=== PATIENT | male | born 1975 | race Caucasian/White ===

== ENCOUNTER 2017-02-14 21:37 | Emergency (ER) | payer MEDICAID, OTHER ==
[2017-02-14 22:09] VITALS: BP 119/76; PULSE 84; RESP 17; TEMP 98.3; O2SAT 99
== END 2017-02-14 22:49 | disposition left against medical advice (07) ==
LOC: C.ER 21:37 → SUPCPDRO 21:37 → C.ER 22:49
DX: R07.81 Pleurodynia (principal); Z02.9 Encounter for administrative examinations, unspecified

== ENCOUNTER 2018-08-30 21:38 | Inpatient (IN) | payer MEDICAID ==
--- NOTE | 2018-08-30 22:38 | C.PDOC ---
History Of Present Illness 43 year old male with a Hx of schizophrenia and depression presents with suicidal ideation. Patient notes his was recently hospitalized for a medical issue, today he tried to cutting his bilateral forearms. He did not OD on medication, sustain other trauma or fall. Denies fever, chills, night sweats, chest pain, abdominal pain, or other complaints. Time Seen by Provider: 08/30/18 22:38 Chief Complaint (Nursing): Psychiatric Evaluation History Per: Patient History/Exam Limitations: no limitations Onset/Duration Of Symptoms: Hrs Current Symptoms Are (Timing): Still Present Suicide/Self Injury Attempted (Context): Other (Cut forearms) Associated Symptoms: Suicidal Thoughts Involuntary Hold By: None Recent travel outside of the [place]: No Past Medical History Reviewed: Historical Data, Nursing Documentation, Vital Signs Vital Signs: Last Vital Signs Temp 98.0 F 08/30/18 22:23 Pulse 78 08/30/18 22:23 Resp 18 08/30/18 22:23 BP 127/89 08/30/18 22:23 Pulse Ox 96 08/30/18 22:23 - Medical History PMH: Bipolar Disorder, Depression, Post Traumatic Stress Disorder, Schizophrenia (2010 - no meds) Denies: Diabetes, Hepatitis, HIV, HTN, Chronic Kidney Disease, Seizures, Sexually Transmitted Disease Family History: States: Unknown Family Hx - Social History Hx Tobacco Use: Yes Hx Alcohol Use: Yes Hx Substance Use: Yes - Immunization History Hx Tetanus Toxoid Vaccination: No Hx Influenza Vaccination: No Hx Pneumococcal Vaccination: No Review Of Systems Except As Marked, All Systems Reviewed And Found Negative. Psych: Positive for: Suicidal ideation Physical Exam - Physical Exam Appears: Non-toxic Skin: Warm, Dry Head: Atraumatic, Normacephalic Eye(s): bilateral: Normal Inspection Oral Mucosa: Moist Neck: Normal, Supple Chest: Symmetrical, No Tenderness Cardiovascular: Rhythm Regular Respiratory: Normal Breath Sounds, No Rales, No Rhonchi, No Wheezing Gastrointestinal/Abdominal: Soft, No Tenderness Extremity: Capillary Refill (<2 seconds), Other (Two superficial lacerations to inner right and left forearms approximately 4cm each, good hemostasis) Pulses: Left Radial: Normal, Right Radial: Normal Neurological/Psych: Oriented x3, Normal Speech ED Course And Treatment - Laboratory Results Result Diagrams: 08/30/18 23:37 01/26/19 23:37 O2 Sat by Pulse Oximetry: 96 (Room air) Pulse Ox Interpretation: Normal Medical Decision Making Medical Decision Making: Suicidal ideation vs Acute stress reaction Will seek crisis eval and medical clearance. Tetanus utd Crisis aware and will see patient [id number] medically clear pending psych 0129 to admit to [facility] pt agreeable to plan, in nad Disposition - Disposition Disposition Time: 01:28 Condition: GOOD Forms: [facility] (Ukrainian) - Clinical Impression Clinical Impression: Schizophrenia - Scribe Statement The provider has reviewed the documentation as recorded by the Scribe Jae Mi All medical record entries made by the Scribe were at my direction and personally dictated by me. I have reviewed the chart and agree that the record accurately reflects my personal performance of the history, physical exam, medical decision making, and the department course for this patient. I have also personally directed, reviewed, and agree with the discharge instructions and disposition.
[2018-08-30 23:40] LABS: BASO % 0.4 % (0.0-2.0); EOS # 0.1 K/uL (0.0-0.7); EOS % 1.9 % (0.0-4.0); HEMOGLOBIN 16.8 g/dL (12.0-18.0); LYMPH # 2.8 K/uL (1.0-4.3); LYMPH % 42.9 % (20.0-40.0); MEAN CELL VOLUME 94.1 fL (80.0-94.0); MEAN CORPUSCULAR HEMOGLOBIN 31.8 pg (27.0-31.0); MEAN CORPUSCULAR HGB CONC 33.8 g/dL (33.0-37.0); MEAN PLATELET VOLUME 8.8 fL (7.2-11.7); MONO # 0.7 K/uL (0.0-0.8); MONO % 10.7 % (0.0-10.0); NEUT # 2.8 K/uL (1.8-7.0); NEUT % 44.1 % (50.0-75.0); NRBC % 0.1 % (0.0-2.0); RBC 5.28 Mil/uL (4.40-5.90); RED CELL DISTRIBUTION WIDTH 13.6 % (11.5-14.5); WHITE BLOOD COUNT 6.4 K/uL (4.8-10.8)
[2018-08-30 23:53] LABS: ACETAMINOPHEN < 10.0 ug/mL (10.0-30.0); SALICYLATE < 1.0 {null, mg/dL 1}
[2018-08-30 23:54] LABS: ALB/GLOB RATIO 1.8 (1.0-2.1); ALT/SGPT 70 U/L (21-72); AST/SGOT 75 U/L (17-59); BLOOD UREA NITROGEN 11 mg/dL (9-20); GFR NON-AFRICAN AMERICAN > 60
[2018-08-31] LABS: URINE BILIRUBIN NEGATIVE (NEGATIVE); URINE BLOOD NEGATIVE (NEGATIVE); URINE CLARITY Clear (Clear); URINE COLOR Yellow (YELLOW); URINE GLUCOSE (UA) NORMAL (Normal); URINE HYALINE CAST 0-2 /lpf (0-2); URINE LEUKOCYTE ESTERASE NEG Leu/uL (Negative); URINE PROTEIN NEGATIVE (NEGATIVE)
[2018-08-31 00:16] LABS: BARBITURATES, UR NEGATIVE (NEGATIVE); BENZODIAZEPINES, UR NEGATIVE (NEGATIVE); OPIATES, UR NEGATIVE (NEGATIVE); PHENCYCLIDINE, UR NEGATIVE (NEGATIVE)
--- NOTE | 2018-08-31 03:21 | PCM.BM ---
<Adair Sommers - Last Filed: 08/31/18 03:18> Treatment Plan Problems - Problems identified on initial assessmt Altered Thought Process Date Initiated: 08/31/18 Time Initiated: 02:30 Assessment reference: NA Status: Active Ineffective Impulse Control Date Initiated: 08/31/18 Time Initiated: 02:30 Assessment reference: NA Status: Monitor Treatment assets and liabiliti Patient Assests: adapts well, cooperative, ADL independent, physically healthy, good support system, negotiates basic needs, cognitively intact Patient Liabilities: substance abuse - Milieu Protocol Maintain good personal hygiene: daily Encourage regular showers, daily Remind patient to perform daily oral care, daily Assist patient to perform ADL's Conduct patient checks and document Observation sheet: Q15 minutes Maintain personal safety: every shift Educate patient to report safety concerns to staff, every shift Monitor environment for contraband/sharps Medication safety: Monitor for expected outcome, potential side effects: every shift, Assess barriers to learning: every shift, Assess readiness for medication education: every shift <Nemo Pérez - Last Filed: 09/01/18 11:42> Family Contact Family involvement: Famliy/SO not involved - Goals for Treatment Patient goals for treatment: "I need an outpatient program." Discharge/Continuing Care - Education Needs Education Needs: Patient Medication, Patient Coping Skills - Treatment Team Participation Discussed with Family/SO: No Was Patient/Family/SO present at Treatment Team Meeting: Yes <Lisa Ramirez - Last Filed: 09/03/18 11:41> - Diagnosis (1) Schizophrenia Status: Acute Interventions: 09/03/18 11:41 * Assess/adjust medications daily and /or as needed * See patient on an individual basis 7x/week to assess status of hallucinations * Discuss risks, benefits, side effects and alternatives of medications *
[2018-09-01 09:23] VITALS: O2SAT 98
--- NOTE | 2018-09-01 09:57 | PCM.PSYCH ---
Initial Psychiatric Evaluation - Initial Psychiatric Evaluation Type of Admission: Voluntary Legal Status: Capacity Chief Complaint (in patient's own words): I started hearing voices. History of Present Illness and Precipitating Events: Patient is a 43 years old male, with a long history of depression and schizophrenia, who was escorted to the hospital with a girlfriend because of depressed mood and increasingly disorganized and paranoid behavior. Patient reports history of multiple inpatient psychiatric hospitalizations in the past. He also reports history of follow-up with a psychiatrist in the past. However he reports that he stopped taking medications almost 8 months ago, and relapsed on drinking. He reports of drinking more than 1 pint of liquor daily. Last abuse was yesterday. He is BAL in the ED was 222. As per his girlfriend, he has been drinking heavily these days and has been becoming increasingly depressed isolative and withdrawn. As per the girlfriend, he also started cutting his arm. On physical examination, superficial cuts, longitudinal, were noted on bilateral forearms. He reports at times depressed mood, feelings of hopelessness and helplessness, poor sleep and poor appetite. He also reports of hearing voices, auditory hallucinations yelling and cursing at him. He he appears paranoid and delusional. He reports withdrawal symptoms from drinking including shakes, anxiety, headache, sweating, and cramps. Past medical history None reported Current Medications: Active Medications Generic Name Dose Route Start Last Admin Trade Name Freq PRN Reason Stop Dose Admin Aripiprazole 15 mg 09/01/18 10:00 Abilify PO DAILY MARSHA Chlordiazepoxide 25 mg 08/31/18 02:54 09/01/18 07:38 Librium PO 25 mg Q4 PRN Administration Symptoms of alcohol withdrawl Haloperidol 5 mg 08/31/18 18:00 08/31/18 17:32 Haldol PO 5 mg BID MARSHA Administration Hydroxyzine HCl 25 mg 08/31/18 02:40 08/31/18 03:07 Atarax PO 25 mg Q6 PRN Administration Anxiety Influenza Virus Vaccine 60 mcg 09/01/18 10:00 Flucelvax Quad [id number] Syr IM 09/01/18 10:01 .ONCE ONE Pneumococcal Polyvalent Vaccine 0.5 ml 09/01/18 10:30 Pneumovax 23 Vaccine IM 09/01/18 10:31 .ONCE ONE Past Psychiatric History - Past Psychiatric History Previous Treatment History: Inpatient Pertinent Medical Hx (Current Medical&Sleep Prob, Allergies): Allergies Allergy/AdvReac Type Severity Reaction Status Date / Time No Known Allergies Allergy Verified 08/30/18 22:30 No Known Home Med 02/14/17 Review of Systems - Review of Systems All systems: reviewed and no additional remarkable complaints except - Psychiatric Psychiatric: Anxiety, Auditory Hallucinations, Irritability, Paranoia, Suicidal Ideation Mental Status Examination - Personal Presentation Personal Presentation: Looks stated age - Affect Affect: Constricted, Depressed - Motor Activity Motor Activity: Psychomotor Retardation - Reliability in Providing Information Reliability in Providing Information: Poor, due to alteration in thoughts, Poor, due to altered mood - Speech Speech: Disorganized - Mood Mood: Depressed, Anxious - Formal Thought Process Formal Thought Process: Hallucinations, Delusions, Paranoia, Loosening of associations - Hallucinations/Delusions Hallucinations: Auditory - Obsessions/Compulsions Obsessions: No Compulsions: No - Cognitive Functions Orientation: Person, Place, Situation, Time Sensorium: Alert Attention/Concentration: Attentive Abstract Thinking: [place] Estimate of Intelligence: Below average Judgement: Imparied, as evidence by: Poor judgement, Imparied, as evidence by: Lack of insight into illness - Risk Risk: Suicidal, Withdrawal, Diminished functioning - Limitations Limitations: Living alone DSM 5 DX - DSM 5 DSM 5 Diagnosis: Schizoaffective disorder depressive type Alcohol use disorder severe Alcohol withdrawal Cannabis use disorder severe - Recommended/Plan of Treatment Treatment Recommendations and Plan of Treatment: Schizoaffective disorder depressive type Alcohol use disorder severe Alcohol withdrawal Cannabis use disorder severe CBT Psychoeducation Supportive therapy and group therapy Librium taper Trazodone for insomnia Haldol for psychosis Abilify for depression Thiamine/folic acid/multivitamin and as needed medications - Smoking Cessation Smoking Cessation Initiated: No
[2018-09-01] MEDS ORDERED: Influenza Vaccine 60 mcg/0.5 mL SYR (4YR UP) IM ONE (10:00)
[2018-09-01] MEDS ORDERED: Pneumococcal 23-Valent Vaccine IM ONE (10:30)
[2018-09-01] MEDS: Multiple Vitamins Tab PO SCH (12:10)
[2018-09-02] MEDS: Multiple Vitamins Tab PO SCH (10:47)
--- NOTE | 2018-09-02 13:23 | PCM.PYCHPN ---
Psychiatric Progress Note - Psychiatric Progress Note Patient seen today, length of contact: 16 min Patient Chief Complaint: I am feeling little better.' Problems Identified/Issues Discussed: Patient was seen and evaluated , chart reviewed and discussed with staff. Patient reports improvement in the voices and paranoia. He also reports improvement in irritability and agitation. He also reports improvement in the withdrawal symptoms. He is taking medication but denies any side effects Symptoms are improving gradually and he needs to stay longer for further stabilization. Supportive therapy was given. Medication Change: Yes Medical Record Reviewed: Yes Mental Status Examination - Cognitive Function Orientation: Person, Place, Situation, Time Memory: Intact Attention: WNL Concentration: Poor Association: Loose Fund of Knowledge: WNL - Mood Mood: Depressed, Anxious - Affect Affect: Constricted, Depressed - Speech Speech: Soft - Formal Thought Process Formal Thought Process: Paranoia, Loosening of associations - Suicidal Ideation Suicidal Ideation: No - Homicidal Ideation Homicidal Ideation: No Goal/Treatment Plan - Goal/Treatment Plan Need for Continued Stay: Remain at risks for inpatient hospitalization, Discharge may exacerbated symptoms Progress Toward Problem(s) and Goals/Treatment Plan: Schizoaffective disorder depressive type Alcohol use disorder severe Alcohol withdrawal Cannabis use disorder severe CBT Psychoeducation Supportive therapy and group therapy Librium taper Trazodone for insomnia Haldol for psychosis Abilify for depression Thiamine/folic acid/multivitamin and as needed medications
[2018-09-03 06:58] VITALS: BP 99/66; PULSE 67; RESP 16; TEMP 98.5
[2018-09-03] MEDS: Multiple Vitamins Tab PO SCH (09:20)
--- NOTE | 2018-09-03 10:33 | PCM.PYCHDC ---
Mental Status Examination - Mental Status Examination Orientation: Person, Place, Situation, Time Memory: Intact Mood: Neutral Affect: Constricted Speech: Soft Attention: WNL Concentration: WNL Association: WNL Fund of Knowledge: WNL Formal Thought Process: No Impairment Description of patient's judgement and insight: good, fair Psychotic Thoughts and Behaviors: denies any AVH Suicidal Ideation: No Current Homicidal Ideation?: No Discharge Summary - Discharge Note Reason for Hospitalization: Patient is a 43 years old male, with a long history of depression and schizophrenia, who was escorted to the hospital with a girlfriend because of depressed mood and increasingly disorganized and paranoid behavior. Patient reports history of multiple inpatient psychiatric hospitalizations in the past. He also reports history of follow-up with a psychiatrist in the past. However he reports that he stopped taking medications almost 8 months ago, and relapsed on drinking. He reports of drinking more than 1 pint of liquor daily. Last abuse was yesterday. He is BAL in the ED was 222. As per his girlfriend, he has been drinking heavily these days and has been becoming increasingly depressed isolative and withdrawn. As per the girlfriend, he also started cutting his arm. On physical examination, superficial cuts, longitudinal, were noted on bilateral forearms. He reports at times depressed mood, feelings of hopelessness and helplessness, poor sleep and poor appetite. He also reports of hearing voices, auditory hallucinations yelling and cursing at him. He he appears paranoid and delusional. He reports withdrawal symptoms from drinking including shakes, anxiety, headache, sweating, and cramps. Consultations:: List each consultation separately and include: 1. Reason for request. 2. Findings. 3. Follow-up Summary of Hospital Course include:: 1. Description of specific treatment plan utilized for patients during their course of treatmen. 2. Summarize the time- course for resolution of acute symptoms and/or regressed behaviors. 3. Describe issues identified and worked on during hospitalization. 4. Describe medication utilized. 5. Describe medical problems identified and treated. 6. Reassessment of suicide risk Summary of Hospital Course: Patient is a 43 years old male, with a long history of depression and schizophrenia, who was escorted to the hospital with a girlfriend because of depressed mood and increasingly disorganized and paranoid behavior. Patient reports history of multiple inpatient psychiatric hospitalizations in the past. He also reports history of follow-up with a psychiatrist in the past. However he reports that he stopped taking medications almost 8 months ago, and relapsed on drinking. He reports of drinking more than 1 pint of liquor daily. Last abuse was yesterday. He is BAL in the ED was 222. As per his girlfriend, he has been drinking heavily these days and has been becoming increasingly depressed isolative and withdrawn. As per the girlfriend, he also started cutting his arm. On physical examination, superficial cuts, longitudinal, were noted on bilateral forearms. He reports at times depressed mood, feelings of hopelessness and helplessness, poor sleep and poor appetite. He also reports of hearing voices, auditory hallucinations yelling and cursing at him. He he appears paranoid and delusional. He reports withdrawal symptoms from drinking including shakes, anxiety, headache, sweating, and cramps. Past medical history None reported - Final Diagnosis (DSM 5) Condition upon Discharge: GOOD DSM 5: Schizoaffective disorder depressive type Alcohol use disorder severe Alcohol withdrawal Cannabis use disorder severe Disposition: HOME/ ROUTINE Follow-up Treatment Plan: Schizoaffective disorder depressive type Alcohol use disorder severe Alcohol withdrawal Cannabis use disorder severe CBT Psychoeducation Supportive therapy and group therapy Librium taper Trazodone for insomnia Haldol for psychosis Abilify for depression Thiamine/folic acid/multivitamin and as needed medications Prescriptions/Medication Reconciliation: ARIPiprazole [Abilify] 5 mg PO DAILY #30 tab Haloperidol [Haldol] 5 mg PO BID #60 tab traZODone [Desyrel] 50 mg PO HS #30 tab - Smoking Cessation Smoking Cessation Medication prescribed: No - Antipsychotic Medications Pt discharged on 2 or more routine antipsychotic medications: No
== END 2018-09-03 11:30 | disposition home or self-care (01) | DRG 430 ==
LOC: C.ER 21:38 → C.5E 08-31 01:29
PROVIDERS: ADMIT Psychiatry & Neurology Psychiatry; ATTEND Psychiatry & Neurology Psychiatry
PROC: GZHZZZZ Group Psychotherapy (ICD-10-PCS; principal; 2018-08-31)
PROC: HZ2ZZZZ Detoxification Services for Substance Abuse Treatment (ICD-10-PCS; 2018-08-31)
PROC: HZ52ZZZ Individual Psychotherapy for Substance Abuse Treatment, Cognitive-Behavioral (ICD-10-PCS; 2018-08-31)
PROC: HZ59ZZZ Individual Psychotherapy for Substance Abuse Treatment, Supportive (ICD-10-PCS; 2018-08-31)
PROC: HZ56ZZZ Individual Psychotherapy for Substance Abuse Treatment, Psychoeducation (ICD-10-PCS; 2018-08-31)
PROC: HZ42ZZZ Group Counseling for Substance Abuse Treatment, Cognitive-Behavioral (ICD-10-PCS; 2018-08-31)
PROC: HZ46ZZZ Group Counseling for Substance Abuse Treatment, Psychoeducation (ICD-10-PCS; 2018-08-31)
PROC: GZ58ZZZ Individual Psychotherapy, Cognitive-Behavioral (ICD-10-PCS; 2018-08-31)
PROC: GZ56ZZZ Individual Psychotherapy, Supportive (ICD-10-PCS; 2018-08-31)
DX: F25.1 Schizoaffective disorder, depressive type (principal); F10.230 Alcohol dependence with withdrawal, uncomplicated; F12.20 Cannabis dependence, uncomplicated; Y90.7 Blood alcohol level of 200-239 mg/100 ml; F31.9 Bipolar disorder, unspecified; F43.10 Post-traumatic stress disorder, unspecified; G47.00 Insomnia, unspecified; R45.851 Suicidal ideations

== ENCOUNTER 2018-11-01 01:00 | Inpatient (IN) | payer MEDICAID ==
--- NOTE | 2018-11-01 01:58 | C.PDOC ---
History Of Present Illness 43 y/o male pt with hx of anxiety, bipolar disorder, depression, and schizophrenia presents to the ER c/o c/o schizophrenia and auditory hallucination that is telling him to hurt himself. Pt denies attempt: ingestion or cutting. Pt denies fall or trauma, chest pain, headache or nausea. No chest pain or shortness of breath. No abdominal pain. No other complaitns. Time Seen by Provider: 11/01/18 01:58 Chief Complaint (Nursing): Psychiatric Evaluation History Per: Patient History/Exam Limitations: no limitations Onset/Duration Of Symptoms: Days Current Symptoms Are (Timing): Still Present Suicide/Self Injury Attempted (Context): None Past Medical History Reviewed: Historical Data, Nursing Documentation, Vital Signs Vital Signs: Last Vital Signs Temp 98.4 F 11/01/18 01:15 Pulse 98 H 11/01/18 01:15 Resp 16 11/01/18 01:15 BP 119/81 11/01/18 01:15 Pulse Ox 98 11/01/18 01:15 - Medical History PMH: Anxiety, Bipolar Disorder, Depression, Post Traumatic Stress Disorder, Schizophrenia - [facility] Procedures DETOXIFICATION SERVICES FOR SUBSTANCE ABUSE TREATMENT (08/31/18) GROUP DOCTOR OF VETERINARY MEDICINE FOR SUBSTANCE ABUSE TREATMENT, PSYCHOEDUCATION (08/31/18) GROUP DOCTOR OF VETERINARY MEDICINE FOR SUBSTANCE ABUSE, COGNITIVE BEHAVIORAL (08/31/18) GROUP PSYCHOTHERAPY (08/31/18) INDIV PSYCHOTHERAPY FOR SUBSTANCE ABUSE TREATMENT, SUPPORT (08/31/18) INDIV PSYCHOTHERAPY FOR SUBSTANCE ABUSE, COGNITIV BEHAVIORAL (08/31/18) INDIV PSYCHOTHERAPY FOR SUBSTANCE ABUSE, PSYCHOEDUCATION (08/31/18) INDIVIDUAL PSYCHOTHERAPY, COGNITIVE-BEHAVIORAL (08/31/18) INDIVIDUAL PSYCHOTHERAPY, SUPPORTIVE (08/31/18) Family History: States: Unknown Family Hx - Social History Hx Tobacco Use: Yes Hx Alcohol Use: Yes Hx Substance Use: Yes - Immunization History Hx Tetanus Toxoid Vaccination: No Hx Influenza Vaccination: No Hx Pneumococcal Vaccination: No Review Of Systems Constitutional: Negative for: Fever, Chills, Sweats, Weakness, Malaise, Weight loss, Other (fall or trauma ) Eyes: Negative for: Pain, Vision Change, Conjunctivae Inflammation, Eyelid Inflammation, Redness ENT: Negative for: Ear Pain, Ear Discharge, Nose Pain, Nose Congestion, Mouth Pain, Mouth Swelling, Throat Pain, Throat Swelling, Other Cardiovascular: Negative for: Chest Pain, Palpitations, Orthopnea, Edema Respiratory: Negative for: Cough, Shortness of Breath, SOB with Excertion, Pleuritic Pain, Wheezing Gastrointestinal: Negative for: Nausea, Vomiting, Abdominal Pain, Diarrhea, Constipation, Melena, Hematochezia Genitourinary: Negative for: Dysuria, Frequency, Incontinence, Hematuria, Penile Discharge Musculoskeletal: Negative for: Neck Pain, Shoulder Pain, Arm Pain, Back Pain, Hand Pain Skin: Negative for: Rash, Lesions Neurological: Negative for: Weakness, Numbness, Change in Speech, Confusion, Headache Psych: Positive for: Depression, Other (auditory hallucination) Physical Exam - Physical Exam Appears: Well, Non-toxic, No Acute Distress Skin: Normal Color, Warm, Dry Head: Atraumatic, Normacephalic, No Laceration Eye(s): bilateral: Normal Inspection, PERRL, EOMI Ear(s): Bilateral: Normal Nose: Normal Oral Mucosa: Moist Tongue: Normal Appearing Lips: Normal Appearing Gingiva: Normal Appearing Throat: Normal, No Erythema, No Exudate Neck: Trachea Midline, No Midline Cervical Tenderness, No Paracervical Tenderness, Supple, Other (no meningeal signs; negative kernig's and brudzins ki's) Lymphatic: Normal Exam, No Adenopathy Chest: Symmetrical Cardiovascular: Rhythm Regular, No Friction Rub Respiratory: Normal Breath Sounds, No Rales, No Rhonchi, No Wheezing Gastrointestinal/Abdominal: Normal Exam, Soft, No Tenderness Back: Normal Inspection, No CVA Tenderness, No Vertebral Tenderness Extremity: Normal ROM, No Tenderness Neurological/Psych: Oriented x3, Normal Speech, Normal Cognition, Normal Cranial Nerves, No Cerebellar Signs, Normal Motor, Normal Sensation Gait: Steady Extremity: Right: No Drift, Left: No Drift ED Course And Treatment - Laboratory Results Result Diagrams: 11/01/18 02:13 11/01/18 02:13 O2 Sat by Pulse Oximetry: 98 (RA) Pulse Ox Interpretation: Normal Medical Decision Making Medical Decision Makin yr old male w/ hx of schizophrenia, bipolar p/w auditory command hallucinations. No attempt at ingestion or cutting himself. Notes he has a plan to cut himself. NO signs of fall or trauma. Alcohol on breath but without any meningeal signs. Plans: -- chem labs -- blood work 0347 +intox per alcohol level labs otherwise largely unremarkable medically cleared: Pending crisis eval Pt in NAD 0503 No signs of withdrawal, strong steady gait. accepted by Crisis, to Dr. Bullard Disposition - Disposition Disposition Time: 03:48 Condition: STABLE Forms: [facility] (Welsh) - Clinical Impression Clinical Impression: Auditory hallucinations - Scribe Statement The provider has reviewed the documentation as recorded by the Scribe Viera Do Provider Attestation: All medical record entries made by the Scribe were at my direction and personally dictated by me. I have reviewed the chart and agree that the record accurately reflects my personal performance of the history, physical exam, medi vickie decision making, and the department course for this patient. I have also personally directed, reviewed, and agree with the discharge instructions and disposition.
[2018-11-01 02:17] LABS: BASO % 0.5 % (0.0-2.0); EOS # 0.1 K/uL (0.0-0.7); EOS % 0.8 % (0.0-4.0); HEMOGLOBIN 17.3 g/dL (12.0-18.0); LYMPH # 3.3 K/uL (1.0-4.3); MEAN CELL VOLUME 94.9 fL (80.0-94.0); MEAN CORPUSCULAR HEMOGLOBIN 32.1 pg (27.0-31.0); MEAN CORPUSCULAR HGB CONC 33.8 g/dL (33.0-37.0); MEAN PLATELET VOLUME 8.1 fL (7.2-11.7); MONO # 0.7 K/uL (0.0-0.8); MONO % 8.2 % (0.0-10.0); NEUT # 4.2 K/uL (1.8-7.0); NEUT % 50.5 % (50.0-75.0); RBC 5.39 Mil/uL (4.40-5.90); RED CELL DISTRIBUTION WIDTH 13.8 % (11.5-14.5); WHITE BLOOD COUNT 8.3 K/uL (4.8-10.8)
[2018-11-01 02:19] LABS: SQUAMOUS EPITHIAL 1 /hpf (0-5); URINE BILIRUBIN NEGATIVE (NEGATIVE); URINE BLOOD NEGATIVE (NEGATIVE); URINE CLARITY Clear (Clear); URINE COLOR Yellow (YELLOW); URINE GLUCOSE (UA) NORMAL (Normal); URINE LEUKOCYTE ESTERASE NEG Leu/uL (Negative); URINE PROTEIN NEGATIVE (NEGATIVE); URINE UROBILINOGEN NORMAL mg/dL (0.2-1.0)
[2018-11-01 02:31] LABS: ACETAMINOPHEN < 10.0 ug/mL (10.0-30.0); ALB/GLOB RATIO 1.6 (1.0-2.1); ALBUMIN 5.1 g/dL (3.5-5.0); ALT/SGPT 43 U/L (21-72); AST/SGOT 49 U/L (17-59); BLOOD UREA NITROGEN 10 mg/dL (9-20); CALCIUM 9.5 mg/dl (8.6-10.4); GFR NON-AFRICAN AMERICAN > 60; SALICYLATE < 1.0 {null, mg/dL 1}
[2018-11-01 02:34] LABS: BARBITURATES, UR NEGATIVE (NEGATIVE); OPIATES, UR NEGATIVE (NEGATIVE); PHENCYCLIDINE, UR NEGATIVE (NEGATIVE)
[2018-11-01 02:39] LABS: BENZODIAZEPINES, UR POSITIVE (NEGATIVE)
--- NOTE | 2018-11-01 06:58 | PCM.BM ---
Treatment Plan Problems - Problems identified on initial assessmt Auditory Hallucinations Date Initiated: 11/01/18 Time Initiated: 06:15 Assessment reference: NA Status: Active Ineffective Coping Date Initiated: 11/01/18 Time Initiated: 06:15 Assessment reference: NA Status: Active Treatment assets and liabiliti Patient Assests: adapts well, ADL independent, physically healthy, good support system, negotiates basic needs, cognitively intact Patient Liabilities: substance abuse - Milieu Protocol Maintain good personal hygiene: daily Encourage regular showers, daily Remind patient to perform daily oral care, daily Assist patient to perform ADL's Conduct patient checks and document Observation sheet: Q15 minutes Maintain personal safety: every shift Educate patient to report safety concerns to staff, every shift Monitor environment for contraband/sharps Medication safety: Monitor for expected outcome, potential side effects: every shift, Assess barriers to learning: every shift, Assess readiness for medication education: every shift
[2018-11-01 06:59] VITALS: O2SAT 100
[2018-11-02] MEDS ORDERED: Influenza Vaccine 60 mcg/0.5 mL SYR (4YR UP) IM ONE (10:01)
[2018-11-03 06:44] VITALS: RESP 16
[2018-11-03] MEDS ORDERED: Pneumococcal 23-Valent Vaccine IM ONE (10:00)
--- NOTE | 2018-11-03 11:43 | PCM.PSYCH ---
Initial Psychiatric Evaluation - Initial Psychiatric Evaluation Type of Admission: Voluntary Legal Status: Capacity Current Medications: Active Medications Generic Name Dose Route Start Last Admin Trade Name Argenis PRN Reason Stop Dose Admin Aripiprazole 10 mg 11/02/18 10:00 11/03/18 10:32 Abilify PO 10 mg DAILY MARSHA Administration Benztropine Mesylate 1 mg 11/02/18 10:00 11/03/18 10:32 Cogentin PO 1 mg BID MARSHA Administration Chlordiazepoxide 25 mg 11/01/18 12:00 11/03/18 08:18 Librium PO 25 mg Q4 MARSHA Administration Haloperidol 5 mg 11/02/18 10:00 11/03/18 10:32 Haldol PO 5 mg BID MARSHA Administration Trazodone HCl 50 mg 11/01/18 22:00 11/02/18 21:48 Desyrel PO 50 mg HS MARSHA Administration Past Psychiatric History - Past Psychiatric History Pertinent Medical Hx (Current Medical&Sleep Prob, Allergies): Allergies Allergy/AdvReac Type Severity Reaction Status Date / Time No Known Allergies Allergy Verified 09/23/18 08:15 ARIPiprazole [Abilify] 5 mg PO DAILY #30 tab 09/03/18 Haloperidol [Haldol] 5 mg PO BID #60 tab 09/03/18 traZODone [Desyrel] 50 mg PO HS #30 tab 09/03/18
[2018-11-04 09:57] VITALS: BP 104/65; PULSE 82; TEMP 97.8
--- NOTE | 2018-11-04 10:20 | PCM.PYCHPN ---
Psychiatric Progress Note - Psychiatric Progress Note Patient seen today, length of contact: 15 min Medication Change: Yes Medical Record Reviewed: Yes Mental Status Examination - Cognitive Function Orientation: Person, Place, Situation, Time Memory: Intact Attention: WNL Concentration: Poor Association: WNL Fund of Knowledge: Poor - Mood Mood: Anxious - Affect Affect: Broad - Speech Speech: Pressured - Formal Thought Process Formal Thought Process: Delusions, Paranoia, Loosening of associations - Suicidal Ideation Suicidal Ideation: No - Homicidal Ideation Homicidal Ideation: No Goal/Treatment Plan - Goal/Treatment Plan Need for Continued Stay: Remain at risks for inpatient hospitalization
--- NOTE | 2018-11-04 10:27 | PCM.PYCHDC ---
Mental Status Examination - Mental Status Examination Orientation: Person, Place, Situation, Time Memory: Intact Mood: Neutral Affect: Constricted Speech: Soft Attention: WNL Concentration: WNL Association: WNL Fund of Knowledge: WNL Formal Thought Process: No Impairment Suicidal Ideation: No Current Homicidal Ideation?: No Discharge Summary - Discharge Note Consultations:: List each consultation separately and include: 1. Reason for request. 2. Findings. 3. Follow-up Summary of Hospital Course include:: 1. Description of specific treatment plan utilized for patients during their course of treatmen. 2. Summarize the time- course for resolution of acute symptoms and/or regressed behaviors. 3. Describe issues identified and worked on during hospitalization. 4. Describe medication utilized. 5. Describe medical problems identified and treated. 6. Reassessment of suicide risk - Final Diagnosis (DSM 5) Condition upon Discharge: STABLE Disposition: HOME/ ROUTINE Prescriptions/Medication Reconciliation: ARIPiprazole [Abilify] 10 mg PO DAILY 14 Days #30 tab Benztropine [Cogentin] 1 mg PO BID 14 Days tab Haloperidol [Haldol] 5 mg PO BID 14 Days #14 tab traZODone [Desyrel] 50 mg PO HS #14 tab
[2018-11-04] MEDS ORDERED: Divalproex 250 mg DR Tab PO SCH (18:00)
== END 2018-11-04 10:51 | disposition home or self-care (01) | DRG 430 ==
LOC: C.ER 01:00 → C.5E 05:04
PROVIDERS: ADMIT Psychiatry & Neurology Psychiatry; ATTEND Psychiatry & Neurology Psychiatry
DX: F20.9 Schizophrenia, unspecified (principal); F31.9 Bipolar disorder, unspecified; F43.10 Post-traumatic stress disorder, unspecified; R45.851 Suicidal ideations; Z87.891 Personal history of nicotine dependence; F10.10 Alcohol abuse, uncomplicated; Y90.8 Blood alcohol level of 240 mg/100 ml or more

== ENCOUNTER 2018-12-17 20:05 | Emergency (ER) | payer MEDICAID ==
[2018-12-17 20:25] VITALS: TEMP 98.3
--- NOTE | 2018-12-17 21:33 | C.PDOC ---
History Of Present Illness 43 year old male presents to the ER lethargic with slurred speech, not making any sense. Patient told triage nurse he was depressed and has been on a drinking binge, not taking his psych meds. Unable to obtain Hx. Time Seen by Provider: 12/17/18 20:33 Chief Complaint (Nursing): Psychiatric Evaluation History Per: Family History/Exam Limitations: no limitations Onset/Duration Of Symptoms: Hrs Modifying Factor(s): Alcohol Involuntary Hold By: None Recent travel outside of the [place]: No Past Medical History Reviewed: Historical Data, Nursing Documentation, Vital Signs Vital Signs: Last Vital Signs Temp 98.3 F 12/17/18 20:21 Pulse 121 H 12/17/18 20:21 Resp 22 12/17/18 20:21 BP 135/89 12/17/18 20:21 Pulse Ox 96 12/17/18 20:21 Primary Care Provider: Non [facility] Provider, - Medical History PMH: Anxiety, Bipolar Disorder, Depression, Post Traumatic Stress Disorder, Schizophrenia Denies: Diabetes, Hepatitis, HIV, HTN, Chronic Kidney Disease, Seizures, Sexually Transmitted Disease - [facility] Procedures DETOXIFICATION SERVICES FOR SUBSTANCE ABUSE TREATMENT (08/31/18) GROUP CLASSIFICATION INSPECTOR FOR SUBSTANCE ABUSE TREATMENT, PSYCHOEDUCATION (08/31/18) GROUP CLASSIFICATION INSPECTOR FOR SUBSTANCE ABUSE, COGNITIVE BEHAVIORAL (08/31/18) GROUP PSYCHOTHERAPY (08/31/18) INDIV PSYCHOTHERAPY FOR SUBSTANCE ABUSE TREATMENT, SUPPORT (08/31/18) INDIV PSYCHOTHERAPY FOR SUBSTANCE ABUSE, COGNITIV BEHAVIORAL (08/31/18) INDIV PSYCHOTHERAPY FOR SUBSTANCE ABUSE, PSYCHOEDUCATION (08/31/18) INDIVIDUAL PSYCHOTHERAPY, COGNITIVE-BEHAVIORAL (08/31/18) INDIVIDUAL PSYCHOTHERAPY, SUPPORTIVE (08/31/18) Family History: States: Unknown Family Hx - Social History Hx Tobacco Use: Yes Hx Alcohol Use: Yes Hx Substance Use: Yes - Immunization History Hx Tetanus Toxoid Vaccination: No Hx Influenza Vaccination: No Hx Pneumococcal Vaccination: No Review Of Systems Review Of Systems: ROS cannot be obtained secondary to pt's inabilty to answer questions. Physical Exam - Physical Exam Appears: Other (Lethargic) Skin: Normal Color, Warm Head: Atraumatic, Normacephalic Eye(s): bilateral: Normal Inspection Oral Mucosa: Moist Neck: Normal, Supple Chest: Symmetrical, No Tenderness Cardiovascular: Rhythm Regular Respiratory: No Rales, No Rhonchi, No Wheezing Gastrointestinal/Abdominal: Soft, No Tenderness Neurological/Psych: Other (Slurred speech, arousable) ED Course And Treatment - Laboratory Results Result Diagrams: 12/17/18 21:44 12/17/18 21:44 Lab Interpretation: Abnormal (UDS positive for cannaboids and benzos, ETOH 288) Interpretation Of Abnormal: UDS positive for cannaboids, benzos and ETOH O2 Sat by Pulse Oximetry: 96 (Room air) Pulse Ox Interpretation: Normal Progress Note: Blood work and urinalysis ordered. 11:45 Patient continues to be lethargic. Sleeping quietly. Disposition - Disposition Disposition Time: 00:36 Condition: STABLE Forms: [facility] (Hungarian) - Clinical Impression Clinical Impression: Alcohol intoxication - Scribe Statement The provider has reviewed the documentation as recorded by the Scribe Jae Mi All medical record entries made by the Scribe were at my direction and personally dictated by me. I have reviewed the chart and agree that the record accurately reflects my personal performance of the history, physical exam, medical decision making, and the department course for this patient. I have also personally directed, reviewed, and agree with the discharge instructions and disposition. Physician Patient Turnover Patient Signed Over To: Mally Cerda Handoff Comments: pending sobriety and crisis evaluation
[2018-12-17 21:51] LABS: BASO # 0.1 K/uL (0.0-0.2); BASO % 0.9 % (0.0-2.0); EOS # 0.1 K/uL (0.0-0.7); EOS % 1.8 % (0.0-4.0); LYMPH # 3.4 K/uL (1.0-4.3); LYMPH % 45.7 % (20.0-40.0); MEAN CELL VOLUME 92.6 fL (80.0-94.0); MEAN CORPUSCULAR HEMOGLOBIN 31.5 pg (27.0-31.0); MEAN PLATELET VOLUME 8.5 fL (7.2-11.7); MONO # 0.5 K/uL (0.0-0.8); MONO % 6.8 % (0.0-10.0); NEUT # 3.3 K/uL (1.8-7.0); NEUT % 44.8 % (50.0-75.0); NRBC % 0.1 % (0.0-2.0); RBC 5.4 Mil/uL (4.40-5.90); RED CELL DISTRIBUTION WIDTH 13.4 % (11.5-14.5); WHITE BLOOD COUNT 7.4 K/uL (4.8-10.8)
[2018-12-17 22:03] LABS: ALB/GLOB RATIO 1.3 (1.0-2.1); ALBUMIN 4.8 g/dL (3.5-5.0); ALT/SGPT 23 U/L (21-72); AST/SGOT 39 U/L (17-59); BLOOD UREA NITROGEN 12 mg/dL (9-20); CALCIUM 9.4 mg/dl (8.6-10.4); GFR NON-AFRICAN AMERICAN > 60
[2018-12-17 22:10] LABS: URINE BACTERIA RARE (<OCC); URINE BILIRUBIN NEGATIVE (NEGATIVE); URINE BLOOD 1+ (NEGATIVE); URINE CLARITY Clear (Clear); URINE COLOR Yellow (YELLOW); URINE GLUCOSE (UA) NORMAL (Normal); URINE LEUKOCYTE ESTERASE NEG Leu/uL (Negative); URINE PROTEIN 1+ mg/dL (NEGATIVE); URINE UROBILINOGEN NORMAL mg/dL (0.2-1.0)
[2018-12-17 22:15] LABS: BARBITURATES, UR NEGATIVE (NEGATIVE); OPIATES, UR NEGATIVE (NEGATIVE); PHENCYCLIDINE, UR NEGATIVE (NEGATIVE)
[2018-12-17 23:16] LABS: BENZODIAZEPINES, UR POSITIVE (NEGATIVE)
[2018-12-18 00:53] VITALS: BP 120/80; PULSE 80; RESP 14; O2SAT 98
== END 2018-12-18 00:53 | disposition home or self-care (01) ==
LOC: C.ER 20:05
DX: F10.129 Alcohol abuse with intoxication, unspecified (principal); F20.9 Schizophrenia, unspecified; F31.9 Bipolar disorder, unspecified; Z72.0 Tobacco use

== ENCOUNTER 2018-12-18 01:12 | Inpatient (IN) | payer MEDICAID ==
--- NOTE | 2018-12-18 01:32 | C.PDOC ---
History Of Present Illness Patient just signed out AMA 30 minutes ago came back feeling depressed. Denies SI or HI. Time Seen by Provider: 12/18/18 01:31 Chief Complaint (Nursing): Psychiatric Evaluation History Per: Patient History/Exam Limitations: no limitations Onset/Duration Of Symptoms: Hrs Current Symptoms Are (Timing): Still Present Suicide/Self Injury Attempted (Context): None Modifying Factor(s): Alcohol Severity: None Pain Scale Rating Of: 0 Associated Symptoms: Depression. denies: Suicidal Thoughts, Other (Homicidal ideation) Involuntary Hold By: None Recent travel outside of the [place]: No Additional History Per: Patient Past Medical History Reviewed: Historical Data, Nursing Documentation, Vital Signs Vital Signs: Last Vital Signs Temp 97.5 F L 12/18/18 01:23 Pulse 70 12/18/18 01:23 Resp 14 12/18/18 01:23 BP 130/80 12/18/18 01:23 Pulse Ox 98 12/18/18 01:23 Primary Care Provider: FAMILY PROVIDER,NO - Medical History PMH: Anxiety, Bipolar Disorder, Depression, Post Traumatic Stress Disorder, Schizophrenia Denies: Diabetes, Hepatitis, HIV, HTN, Chronic Kidney Disease, Seizures, Sexually Transmitted Disease - [facility] Procedures DETOXIFICATION SERVICES FOR SUBSTANCE ABUSE TREATMENT (08/31/18) GROUP STOCK BLENDER FOR SUBSTANCE ABUSE TREATMENT, PSYCHOEDUCATION (08/31/18) GROUP STOCK BLENDER FOR SUBSTANCE ABUSE, COGNITIVE BEHAVIORAL (08/31/18) GROUP PSYCHOTHERAPY (08/31/18) INDIV PSYCHOTHERAPY FOR SUBSTANCE ABUSE TREATMENT, SUPPORT (08/31/18) INDIV PSYCHOTHERAPY FOR SUBSTANCE ABUSE, COGNITIV BEHAVIORAL (08/31/18) INDIV PSYCHOTHERAPY FOR SUBSTANCE ABUSE, PSYCHOEDUCATION (08/31/18) INDIVIDUAL PSYCHOTHERAPY, COGNITIVE-BEHAVIORAL (08/31/18) INDIVIDUAL PSYCHOTHERAPY, SUPPORTIVE (08/31/18) Family History: States: No Known Family Hx - Social History Hx Tobacco Use: Yes Hx Alcohol Use: Yes Hx Substance Use: Yes - Immunization History Hx Tetanus Toxoid Vaccination: No Hx Influenza Vaccination: No Hx Pneumococcal Vaccination: No Review Of Systems Constitutional: Negative for: Fever, Chills Cardiovascular: Negative for: Chest Pain, Palpitations Respiratory: Negative for: Cough, Shortness of Breath Gastrointestinal: Negative for: Nausea, Vomiting Neurological: Negative for: Weakness, Numbness Psych: Positive for: Depression, Other (Homicidal ideation). Negative for: Suicidal ideation Physical Exam - Physical Exam Appears: Non-toxic Skin: Warm, Dry Head: Normacephalic Oral Mucosa: Moist Chest: Symmetrical, No Tenderness Cardiovascular: Rhythm Regular Respiratory: No Rales, No Rhonchi, No Wheezing Gastrointestinal/Abdominal: Soft, No Tenderness Back: No CVA Tenderness Extremity: No Tenderness Extremity: Bilateral: Normal ROM Neurological/Psych: Oriented x3 Gait: Steady ED Course And Treatment O2 Sat by Pulse Oximetry: 98 (Room air) Pulse Ox Interpretation: Normal Progress Note: Blood work ordered. Disposition Discussed With Dr.: Lisa Ramirez Comment: accepted the pt [facility] is service and took over the care at 3:15 AM Doctor Will See Patient In The: Hospital Counseled Patient/Family Regarding: Studies Performed, Diagnosis - Disposition Disposition: HOSPITALIZED Disposition Time: : Condition: FAIR Forms: [facility] (Tunisian) - POA Present On Arrival: None - Clinical Impression Clinical Impression: Alcohol abuse, Schizoaffective disorder - Scribe Statement The provider has reviewed the documentation as recorded by the Scribarleth iM All medical record entries made by the Scribe were at my direction and personally dictated by me. I have reviewed the chart and agree that the record accurately reflects my personal performance of the history, physical exam, medical decision making, and the department course for this patient. I have also personally directed, reviewed, and agree with the discharge instructions and disposition. Decision To Admit - Pt Status Changed To: Hospital Disposition Of: Inpatient - Admit Certification Admit to Inpatient:: After my assessment, the patient will require hospitalization for at least two midnights. This is because of the severity of symptoms shown, intensity of services needed, and/or the medical risk in this patient being treated as an outpatient. - InPatient: Physician Admission Certification: I certify that this patient requires 2 or more midnights of care for the following reason:: After my assessment, the patient will require hospitalization for at least two midnights. This is because of the severity of symptoms shown, intensity of services needed, and/or the medical risk in this patient being treated as an outpatient. - . Bed Request Type: Psychiatry Admitting Physician: Lisa Ramirez Patient Diagnosis: Alcohol abuse, Schizoaffective disorder
[2018-12-18 02:01] LABS: BARBITURATES, UR NEGATIVE (NEGATIVE); OPIATES, UR NEGATIVE (NEGATIVE); PHENCYCLIDINE, UR NEGATIVE (NEGATIVE)
[2018-12-18 02:21] LABS: BENZODIAZEPINES, UR POSITIVE (NEGATIVE)
--- NOTE | 2018-12-18 05:41 | PCM.BM ---
<Adair Sommers - Last Filed: 12/18/18 05:38> Treatment Plan Problems - Problems identified on initial assessmt Ineffective Coping Date Initiated: 12/18/18 Time Initiated: 04:20 Assessment reference: NA Status: Active Auditory Hallucinations Date Initiated: 12/18/18 Time Initiated: 04:20 Assessment reference: NA Status: Active Medication Nonadherence Date Initiated: 12/18/18 Time Initiated: 04:20 Assessment reference: NA Status: Active Treatment assets and liabiliti Patient Assests: adapts well, cooperative, ADL independent, physically healthy, negotiates basic needs, cognitively intact Patient Liabilities: substance abuse (THC, Alcohol) - Milieu Protocol Maintain good personal hygiene: daily Encourage regular showers, daily Remind patient to perform daily oral care, daily Assist patient to perform ADL's Conduct patient checks and document Observation sheet: Q15 minutes Maintain personal safety: every shift Educate patient to report safety concerns to staff, every shift Monitor environment for contraband/sharps Medication safety: Monitor for expected outcome, potential side effects: every shift, Assess barriers to learning: every shift, Assess readiness for medication education: every shift <Sabrina Mchugh - Last Filed: 12/18/18 23:31> - Diagnosis (1) Alcohol abuse Status: Acute Interventions: 12/18/18 23:31 * Assess 7x/week regarding severity of withdrawal * Educate regarding risks, benefits, side effects and alternatives of medications * Use Motivational Interviewing for abstinence * Use CBT for relapse prevention * Medication management for withdrawal symptoms * Encourage medication assisted treatment * (2) Schizoaffective disorder Status: Acute Interventions: 12/18/18 23:31 * Assess/adjust medications daily and /or as needed * See patient on an individual basis 7x/week to assess status of hallucinations * Discuss risks, benefits, side effects and alternatives of medications *
--- NOTE | 2018-12-18 13:17 | PCM.PSYCH ---
Initial Psychiatric Evaluation - Initial Psychiatric Evaluation Type of Admission: Voluntary Legal Status: Capacity Chief Complaint (in patient's own words): "I was feeling bad" History of Present Illness and Precipitating Events: Patient is a 43 years old male, with a long history of depression and schizophrenia, single with 3 adult and one 12 y/o children. Unemployed. He says he lives with GF but per chart she threw him out bc of his drinking. Poor historian Patient reports history of multiple inpatient psychiatric hospitalizations in the past. He also reports history of poor follow-up with a psychiatrist in the past. He reports of drinking more than 5 pint of liquor daily (??). He reports 1-2 weeks of depressed mood, anhedonia, passive SI, feelings of hopelessness and helplessness, poor sleep and poor appetite. He also reports of hearing voices, auditory hallucinations yelling and cursing at him, "screams" he adds. He sees shadows. He appears paranoid and delusional. "They want to hurt me" He reports withdrawal symptoms from drinking including shakes, anxiety, headache, sweating, and cramps. Smokes MJ but denies drugs. Smokes 10 cig/d He was going to [facility] but not consistently. Meds- ABilify 30 and haldol 20 mg Past medical history: None reported Family psych hx: Denies Past psych hx: As above, many admissions, self-injurious bhv Current Medications: Active Medications Generic Name Dose Route Start Last Admin Trade Name Freq PRN Reason Stop Dose Admin Aripiprazole 30 mg 12/18/18 20:00 Abilify PO 12/18/18 20:01 ONCE ONE Benztropine Mesylate 1 mg 12/18/18 18:00 Cogentin PO 12/21/18 18:01 BID MARSHA Haloperidol 5 mg 12/18/18 18:00 Haldol PO 12/23/18 18:01 BID MARSHA Ibuprofen 600 mg 12/18/18 13:13 Motrin Tab PO Q6H PRN Pain, moderate (4-7) Lorazepam 1 mg 12/18/18 07:18 Ativan PO Q6 PRN Symptoms of alcohol withdrawl Pneumococcal Polyvalent Vaccine 0.5 ml 12/21/18 10:00 Pneumovax 23 Vaccine IM 12/21/18 10:01 .ONCE ONE Trazodone HCl 100 mg 12/18/18 13:13 Desyrel PO HS PRN Insomnia Past Psychiatric History - Past Psychiatric History Previous Treatment History: Inpatient Pertinent Medical Hx (Current Medical&Sleep Prob, Allergies): Allergies Allergy/AdvReac Type Severity Reaction Status Date / Time No Known Allergies Allergy Verified 12/18/18 01:26 Haloperidol [Haldol] 5 mg PO BID #60 tab 09/03/18 traZODone [Desyrel] 50 mg PO HS #30 tab 09/03/18 ARIPiprazole [Abilify] 10 mg PO DAILY 14 Days #30 tab 11/04/18 Benztropine [Cogentin] 1 mg PO BID 14 Days tab 11/04/18 Review of Systems - Psychiatric Psychiatric: Abnormal Sleep Pattern, Anxiety, Depression, Difficulty Concentrating, Hallucinations, Irritability, Paranoia. absent: Homicidal Ideation, Suicidal Ideation Mental Status Examination - Personal Presentation Personal Presentation: Looks older than stated age - Affect Affect: Constricted - Motor Activity Motor Activity: Calm - Reliability in Providing Information Reliability in Providing Information: Good - Speech Speech: Organized - Mood Mood: Depressed, Anxious - Formal Thought Process Formal Thought Process: Hallucinations, Delusions, Paranoia - Hallucinations/Delusions Hallucinations: Visual, Auditory Delusions: Persecution - Cognitive Functions Orientation: Person, Place, Situation, Time Sensorium: Alert Attention/Concentration: Easily distracted Abstract Thinking: [place] Estimate of Intelligence: Average Judgement: Intact, as evidence by: Insight regarding need for hospitalization Memory: Recent intact, as evidence by: Ability to recall events of the day, Remote impaired as evidenced by: Inability to recall sig life events - Risk Risk: Withdrawal, Diminished functioning - Strength & Assets Inventory Strength & Assets Inventory: Cooperative - Limitations Limitations: Living alone, Other DSM 5 DX - DSM 5 DSM 5 Diagnosis: Schizoaffective disorder depressive type Alcohol use disorder severe Alcohol withdrawal Cannabis use disorder severe - Recommended/Plan of Treatment Treatment Recommendations and Plan of Treatment: Switch to Aristada for better compliance: abilify 30 mg, folowed by Aristada Initio and then Aristada 441 mg IM - he agreed Haldol low dose for now Cogentin and inderal to prevent SEs Taper with librium Gabapentin for augmentation if needed As needed medications All risks, benefits and alternatives of the meds discussed, and the pt agreed and understood. Attend groups and activities Supportive therapy and psychoeducation NM for abstinence CBT for relapse prevention Encourage MAT Refer to rehab or IOP, and self-help groups Teach healthy lifestyle methods, i.e. diet, exercise, meditation Smoking cessation with NM Nicotine patch if needed 34 min Projected ELOS: 5-6 days
[2018-12-19] MEDS ORDERED: ARIPIPRAZOLE LAUROXIL IM ONE (10:00)
--- NOTE | 2018-12-19 11:07 | PCM.PYCHPN ---
Psychiatric Progress Note - Psychiatric Progress Note Patient seen today, length of contact: 17 min Patient Chief Complaint: "I am tired today" Problems Identified/Issues Discussed: The pt is seen, chart reviewed, case is discussed with staff. The pt is compliant with medications and reports no side-effects. Risks of Aristada injections discussed he agreed Symptoms are improving but needs more time to stabilize and to avoid relapse. Pt attends only a few groups and activities. Support given, psycho-education provided. After care discussed. Medication Change: Yes (Aristada Initio and 441) Medical Record Reviewed: Yes Mental Status Examination - Cognitive Function Orientation: Person, Place, Situation, Time Memory: Intact Attention: Poor Concentration: Poor Association: WNL Fund of Knowledge: WNL - Mood Mood: Depressed, Anxious - Affect Affect: Constricted - Speech Speech: Appropriate - Formal Thought Process Formal Thought Process: Hallucinations, Delusions, Paranoia - Suicidal Ideation Suicidal Ideation: No - Homicidal Ideation Homicidal Ideation: No Goal/Treatment Plan - Goal/Treatment Plan Need for Continued Stay: Discharge may exacerbated symptoms, Severe functional impairment Progress Toward Problem(s) and Goals/Treatment Plan: Switch to Aristada for better compliance: abilify 30 mg, folowed by Aristada Initio and then Aristada 441 mg IM - he agreed Haldol low dose for now Cogentin and inderal to prevent SEs Taper with librium Gabapentin for augmentation if needed As needed medications All risks, benefits and alternatives of the meds discussed, and the pt agreed and understood. Attend groups and activities Supportive therapy and psychoeducation NM for abstinence CBT for relapse prevention Encourage MAT Refer to rehab or IOP, and self-help groups Teach healthy lifestyle methods, i.e. diet, exercise, meditation Smoking cessation with NM Nicotine patch if needed
[2018-12-19 18:00] VITALS: O2SAT 97
[2018-12-20 06:16] VITALS: TEMP 98.6
[2018-12-20] MEDS ORDERED: ARIPIPRAZOLE LAUROXIL 441 MG/1.6 ML IM ONE (10:00)
--- NOTE | 2018-12-20 12:22 | PCM.PYCHPN ---
Psychiatric Progress Note - Psychiatric Progress Note Patient seen today, length of contact: 15 MIN Medication Change: Yes Medical Record Reviewed: Yes Mental Status Examination - Cognitive Function Orientation: Person, Place, Situation, Time Memory: Intact Attention: WNL Concentration: Poor Association: WNL Fund of Knowledge: Poor - Mood Mood: Depressed, Anxious - Affect Affect: Constricted - Speech Speech: Soft - Formal Thought Process Formal Thought Process: Hallucinations, Delusions, Paranoia - Suicidal Ideation Suicidal Ideation: No - Homicidal Ideation Homicidal Ideation: No Goal/Treatment Plan - Goal/Treatment Plan Need for Continued Stay: Remain at risks for inpatient hospitalization
[2018-12-21] MEDS ORDERED: Pneumococcal 23-Valent Vaccine IM ONE (10:00)
[2018-12-22 06:47] VITALS: BP 110/70; PULSE 66; RESP 18
--- NOTE | 2018-12-22 11:05 | PCM.PYCHDC ---
Mental Status Examination - Mental Status Examination Orientation: Person Discharge Summary - Discharge Note Consultations:: List each consultation separately and include: 1. Reason for request. 2. Findings. 3. Follow-up Summary of Hospital Course include:: 1. Description of specific treatment plan utilized for patients during their course of treatmen. 2. Summarize the time- course for resolution of acute symptoms and/or regressed behaviors. 3. Describe issues identified and worked on during hospitalization. 4. Describe medication utilized. 5. Describe medical problems identified and treated. 6. Reassessment of suicide risk Summary of Hospital Course: Patient is a 43 years old male, with a long history of depression and schizophrenia, single with 3 adult and one 12 y/o children. Unemployed. He says he lives with GF but per chart she threw him out bc of his drinking. Poor historian Patient reports history of multiple inpatient psychiatric hospitalizations in the past. He also reports history of poor follow-up with a psychiatrist in the past. He reports of drinking more than 5 pint of liquor daily (??). He reports 1-2 weeks of depressed mood, anhedonia, passive SI, feelings of hopelessness and helplessness, poor sleep and poor appetite. He also reports of hearing voices, auditory hallucinations yelling and cursing at him, "screams" he adds. He sees shadows. He appears paranoid and delusional. "They want to hurt me" He reports withdrawal symptoms from drinking including shakes, anxiety, headache, sweating, and cramps. Smokes MJ but denies drugs. Smokes 10 cig/d He was going to [facility] but not consistently. Meds- ABilify 30 and haldol 20 mg Past medical history: None reported Family psych hx: Denies Past psych hx: As above, many admissions, self-injurious bhv Pt refused rx saying he has enough at home. He will return to [facility] program - Diagnosis (1) Alcohol abuse Status: Acute (2) Schizoaffective disorder Status: Acute - Final Diagnosis (DSM 5) Condition upon Discharge: FAIR Disposition: HOME/ ROUTINE Follow-up Treatment Plan: Switch to Aristada for better compliance: abilify 30 mg, folowed by Aristada Initio and then Aristada 441 mg IM - he agreed Haldol low dose for now Cogentin and inderal to prevent SEs Taper with librium Gabapentin for augmentation if needed As needed medications All risks, benefits and alternatives of the meds discussed, and the pt agreed and understood. Attend groups and activities Supportive therapy and psychoeducation PR for abstinence CBT for relapse prevention Encourage MAT Refer to rehab or IOP, and self-help groups Teach healthy lifestyle methods, i.e. diet, exercise, meditation Smoking cessation with PR Nicotine patch if needed
== END 2018-12-22 10:45 | disposition home or self-care (01) | DRG 750 ==
LOC: C.ER 01:12 → C.5E 03:14
PROVIDERS: ADMIT Psychiatry & Neurology Psychiatry; ATTEND Psychiatry & Neurology Psychiatry
PROC: HZ2ZZZZ Detoxification Services for Substance Abuse Treatment (ICD-10-PCS; principal; 2018-12-18)
PROC: HZ52ZZZ Individual Psychotherapy for Substance Abuse Treatment, Cognitive-Behavioral (ICD-10-PCS; 2018-12-18)
PROC: HZ59ZZZ Individual Psychotherapy for Substance Abuse Treatment, Supportive (ICD-10-PCS; 2018-12-18)
PROC: HZ56ZZZ Individual Psychotherapy for Substance Abuse Treatment, Psychoeducation (ICD-10-PCS; 2018-12-18)
PROC: HZ57ZZZ Individual Psychotherapy for Substance Abuse Treatment, Motivational Enhancement (ICD-10-PCS; 2018-12-18)
DX: F10.239 Alcohol dependence with withdrawal, unspecified (principal); F25.1 Schizoaffective disorder, depressive type; F12.20 Cannabis dependence, uncomplicated; F17.210 Nicotine dependence, cigarettes, uncomplicated; F43.10 Post-traumatic stress disorder, unspecified; F32.9 Major depressive disorder, single episode, unspecified

== ENCOUNTER 2018-12-29 18:42 | Emergency (ER) | payer MEDICAID ==
[2018-12-29 18:51] VITALS: BP 150/100; PULSE 98; RESP 16; TEMP 97.6; O2SAT 98
--- NOTE | 2018-12-29 19:16 | C.PDOC ---
History Of Present Illness 43 year old male presents to ED requesting alcohol detox. Patient has no PMHx or psychiatric history. Patient denies suicidal ideation and homicidal ideation. Time Seen by Provider: 12/29/18 19:09 Chief Complaint (Nursing): Substance Abuse History Per: Patient History/Exam Limitations: no limitations Onset/Duration Of Symptoms: Other (requesting detox) Current Symptoms Are (Timing): Still Present Suicide/Self Injury Attempted (Context): None Modifying Factor(s): Alcohol Associated Symptoms: denies: Suicidal Thoughts, Other (homicidal ideation) Involuntary Hold By: None Recent travel outside of the [place]: No Past Medical History Reviewed: Historical Data, Nursing Documentation, Vital Signs Vital Signs: Last Vital Signs Temp 97.6 F 12/29/18 18:49 Pulse 98 H 12/29/18 18:49 Resp 16 12/29/18 18:49 BP 150/100 H 12/29/18 18:49 Pulse Ox 98 12/29/18 18:49 Primary Care Provider: FAMILY PROVIDER,NO - Medical History PMH: Anxiety, Bipolar Disorder, Depression, Post Traumatic Stress Disorder, Schizophrenia Denies: Diabetes, Hepatitis, HIV, HTN, Chronic Kidney Disease, Seizures, Sexually Transmitted Disease Surgical History: No Surg Hx - [facility] Procedures DETOXIFICATION SERVICES FOR SUBSTANCE ABUSE TREATMENT (12/18/18) GROUP HEADING AND PRIMING OPERATOR FOR SUBSTANCE ABUSE TREATMENT, PSYCHOEDUCATION (08/31/18) GROUP HEADING AND PRIMING OPERATOR FOR SUBSTANCE ABUSE, COGNITIVE BEHAVIORAL (08/31/18) GROUP PSYCHOTHERAPY (08/31/18) INDIV PSYCHOTHERAPY FOR SUBSTANCE ABUSE TREATMENT, SUPPORT (12/18/18) INDIV PSYCHOTHERAPY FOR SUBSTANCE ABUSE, COGNITIV BEHAVIORAL (12/18/18) INDIV PSYCHOTHERAPY FOR SUBSTANCE ABUSE, MOTIVATION ENHANCE (12/18/18) INDIV PSYCHOTHERAPY FOR SUBSTANCE ABUSE, PSYCHOEDUCATION (12/18/18) INDIVIDUAL PSYCHOTHERAPY, COGNITIVE-BEHAVIORAL (08/31/18) INDIVIDUAL PSYCHOTHERAPY, SUPPORTIVE (08/31/18) Family History: States: Unknown Family Hx - Social History Hx Tobacco Use: Yes Hx Alcohol Use: Yes Hx Substance Use: Yes - Immunization History Hx Tetanus Toxoid Vaccination: No Hx Influenza Vaccination: No Hx Pneumococcal Vaccination: No Review Of Systems Constitutional: Negative for: Fever, Chills, Weakness Psych: Negative for: Suicidal ideation, Other (homicidal ideation) Physical Exam - Physical Exam Appears: Well, Non-toxic, No Acute Distress Skin: Normal Color, Warm, Dry Head: Atraumatic, Normacephalic Eye(s): bilateral: Normal Inspection Neck: Normal ROM, Supple Chest: Symmetrical, No Deformity Cardiovascular: Rhythm Regular, No Murmur Respiratory: No Accessory Muscle Use, No Rales, No Rhonchi, No Wheezing Gastrointestinal/Abdominal: Bowel Sounds (normoactive), Soft, No Tenderness Extremity: Capillary Refill (<2 seconds) Extremity: Bilateral: Atraumatic, Normal Color And Temperature, Normal ROM Pulses: Left Radial: Normal, Right Radial: Normal Neurological/Psych: Oriented x3, Normal Speech, Normal Cognition Gait: Steady ED Course And Treatment O2 Sat by Pulse Oximetry: 98 (in RA) Pulse Ox Interpretation: Normal Medical Decision Making Medical Decision Making: Patient notified that no beds are available and given a list of other detox programs to explore. Disposition Counseled Patient/Family Regarding: Diagnosis, Need For Followup - Disposition Disposition: HOME/ ROUTINE Disposition Time: 19:16 Condition: GOOD Additional Instructions: Please go to another detox program. See list given for other programs to try. Instructions: Alcohol Abuse and Alcoholism (DC) Forms: [facility] (Tai[place]ese), General Discharge Instructions - Clinical Impression Clinical Impression: Alcohol abuse - PA / DNA SEQUENCING ASSOCIATE / Resident Statement MD/DO has reviewed & agrees with the documentation as recorded. (Cassandra Doshi) - Scribe Statement The provider has reviewed the documentation as recorded by the Scribe (Cassandra Doshi) All medical record entries made by the Scribe were at my direction and personally dictated by me. I have reviewed the chart and agree that the record accurately reflects my personal performance of the history, physical exam, medical decision making, and the department course for this patient. I have also personally directed, reviewed, and agree with the discharge instructions and disposition.
== END 2018-12-29 19:20 | disposition home or self-care (01) ==
LOC: C.ER 18:42
DX: F10.10 Alcohol abuse, uncomplicated (principal); Y90.9 Presence of alcohol in blood, level not specified